=== PATIENT | female | born 1985 | race Two or more races ===

== ENCOUNTER 2025-01-12 04:37 | Emergency (ER) | payer MEDICAID, SELFPAY ==
[2025-01-12 04:38] VITALS: BMI 28.6
[2025-01-12 04:42] VITALS: BP 175/86; PULSE 95; RESP 19; TEMP 36.8; O2SAT 100
--- NOTE | 2025-01-12 04:55 | PD.EDHA ---
ED Headache RME/HPI General Chief Complaint: Headache Stated Complaint: HEADACHE X 1 WEEK Time Seen by Provider: 01/12/25 04:47 Arrival date/time: 01/12/25 04:37 RME / HPI RME / HPI Narrative: This section includes all my notes and documentations, including HPI, PE, and ED course. Osbaldo Wick MD HPI: 39-year-old female here with about a week history of severe headache. Was seen by PCP a couple of days ago. Was told the headache was due to high BP. Was given lisinopril 10 mg every morning, took it yesterday, not today. No speech or visual impairment. Reports pressure feeling in the left facial area. Vomited earlier today. Reports photophobia and phonophobia. No fever or chills. No neck pain or stiffness. No cough or congestion. No loss of power in the arms or legs. No chest pain or shortness of breath. Has diabetes, sugars that was normal yesterday. No other complaints. ROS: All negative except as documented in HPI. Physical Exam: General: Alert and oriented. In obvious pain. Eyes: Conjunctivae and lids clear. EOMI. PERRL. ENT: No nasal congestion. Pharynx normal. Tympanic membrane normal bilaterally. Neck: Supple. No carotid bruit. No JVD. Heart: RRR. Lungs: No respiratory distress. Good air movement. No rhonchi, wheezing, rales. Skin: Warm and dry. Neuro: Alert and oriented X 3. Cranial Nerves II-XII grossly intact. No peripheral motor deficits. Ordered head CT and bedside glucose and Zofran ODT 4 mg and oral Imitrex 25 mg and two Tylenol #3. At 6 AM on 01/12/2025, the care of the patient was transferred to Dr. SALVADOR. Osbaldo Wick MD Related Data Home Medications ?Medication ?Instructions ?Recorded ?Confirmed insulin NPH isoph U-100 human 100 20 unit subcut TID Diabetes ##0 09/14/13 06/20/19 unit/mL subcutaneous suspension (Novolin N NPH U-100 Insulin isophane) insulin glargine 100 unit/mL 30 units subcut HS Diabetes 01/20/19 06/20/19 subcutaneous solution (Lantus U-100 Insulin) metformin 1,000 mg tablet 1,000 mg PO BID 06/20/19 06/20/19 Previous Rx's ?Medication ?Instructions ?Recorded levofloxacin 750 mg tablet 750 mg PO QDAY #3 tabs 06/25/19 (Levaquin) Allergies Allergy/AdvReac Type Severity Reaction Status Date / Time No Known Allergies Allergy Verified 01/12/25 04:53 Course Quality Measures none Orders Category Date Time Status ACETAMINOPHEN w/COD 300-30 [Tylenol w/Cod #3] Med 01/12/25 04:55 Discontinued 2 tab PO X1 ONE Ondansetron Odt [Zofran Odt] Med 01/12/25 04:55 Once 4 mg PO X1 ONE SUMAtriptan [Imitrex] Med 01/12/25 04:55 Discontinued 25 mg PO X1 ONE Vital Signs Vital signs: Vital Signs Temperature 98.2 F 01/12/25 04:42 Pulse Rate 95 01/12/25 04:42 Respiratory Rate 19 01/12/25 04:42 Blood Pressure 175/86 H 01/12/25 04:42 Pulse Oximetry (%) 100 01/12/25 04:42 Oxygen Delivery Method Room Air 01/12/25 04:42 Headache Patient data External records reviewed:: [facility] previous records Clinical information provided by:: patient Social determinants that could affect healthcare access:: none Patient has the following chronic illnesses:: DM How is presenting disease/condition affected by chronic disease/condition?: uneffected by Evaluation data The following diagnostics were reviewed and interpreted by me:: other (specify) (Diagnostics pending) Lab and/or radiology exams considered but not ordered:: None Interpretation Summary: Diagnostics pending Medications / Prescriptions Medications or Prescriptions considered but not ordered:: None Medication administrations:: Medication Administration History Ondansetron HCl (Ondansetron Odt 4 Mg Tabrap) 4 mg PO X1 ONE; Protocol Stop: 01/12/25 04:56 Discontinued Medications Acetaminophen/Codeine Phosphate (Acetaminophen W/Cod 300-30 Tablet) 2 tab PO X1 ONE Stop: 01/12/25 04:56 Sumatriptan Succinate (Sumatriptan 25 Mg Tablet) 25 mg PO X1 ONE Stop: 01/12/25 04:56 I ordered Zofran ODT 4 mg and oral Imitrex 25 mg and two Tylenol #3. Consultations Consultation(s) initiated? (list below): No Diagnosis Differential diagnosis headache: migraine, tension headache, subarachnoid hemorrhage and other (Cluster headache, psychogenic headache) Most likely diagnosis given after review of the tests above:: Diagnostics pending Admission Indicated Admission indicated?: not indicated Explain why admission is indicated or not indicated:: Diagnostics pending Admission Request Was there a request for admission?: No Disposition Plan Disposition Plan: other (specify) (Care of the patient was transferred to Dr. SALVADOR) Discharge Plan Prescriptions/Referrals Prescriptions/Med Rec: No Action Novolin N NPH U-100 Insulin 100 U/ML suspension 20 unit Sub-Q TID Qty: 0 Lantus U-100 Insulin 100 unit/mL Solution 30 units subcut HS metformin 1,000 mg Tablet 1,000 mg PO BID levofloxacin [Levaquin] 750 mg tablet 750 mg PO QDAY Qty: 3 0RF Rx Instructions: Start 06/26. Problem List Clinical Impression: Headache Patient/Caregiver Discharge Instructions Print Language: Icelandic
[2025-01-12] MEDS: ONDANSETRON ODT 4 MG TABRAP PO (05:06)
[2025-01-12] MEDS: ACETAMINOPHEN w/COD 300-30 TABLET 2 TAB PO (05:07)
--- NOTE | 2025-01-12 05:11 | XR_ITS ---
Examination: CT brain head without contrast. 2-D sagittal coronal reconstructions Date and time of exam:January 12, 2025 at 0518 hrs. Indications: Onset headaches numbness left side of the face beginning one week ago, worse headache of life today CTDI: vol (mGy):46 DLP: (mGycm):890 Technique: Multiple CT axial sections of the brain have been obtained, 5 mm slice thickness. Contrast has not been administered. 2-D sagittal, coronal reconstructions have been obtained Low dose protocols were performed. One or more of the following dose reduction techniques were used; automated exposure control, adjustment of the mA and/or KV according to patient size, use of iterative reconstruction technique. Findings: No significant ventricular enlargement. Intra-axial or extra-axial hemorrhage density is not seen. No mass effect or midline shift Basal cisterns are not remarkable. Fourth ventricle is midline. Cranial vault intact. Impression: Negative for acute hemorrhage, mass effect or midline shift If symptoms persist, consider brain MRI follow-up
[2025-01-12] MEDS: SUMAtriptan 25 MG TABLET PO (05:38)
--- NOTE | 2025-01-12 05:50 | PRELIM_ITS ---
CT scan of the head without intravenous contrast (axial sections with sagittal and coronal reformats). January 12, 2025 0518 hours Clinical History: Worst headache Comparison: No prior study is available for comparison. Findings: No evidence of intracranial hemorrhage, mass effect or midline shift. The ventricles and CSF spaces are unremarkable. 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 The calvarium is unremarkable. The mastoid air cells and the visualized paranasal sinuses are clear. Impression: No evidence of intracranial hemorrhage, mass effect or midline shift. Report Electronically Signed By: Jluis Smith 01/12/2025 5:49:41 AM [EST]
[2025-01-12 06:00] VITALS: RESP 18
== END 2025-01-12 06:05 | disposition home or self-care (01) ==
PROVIDERS: Emergency Provider Emergency Medicine; PCP Family Medicine
DX: R51.9 Headache, unspecified (principal); E11.9 Type 2 diabetes mellitus without complications
CPT/HCPCS: 70450; 99284; Q0162; A9270